=== PATIENT | female | born 1980 | race Two or more races ===

== ENCOUNTER 2017-01-28 18:03 | Emergency (ER) | payer OTHER ==
[~2017-01-28] VITALS: Ht 165.1 cm; Wt 54.4 kg
[~2017-01-28 18:03] MED LIST: LORA2TAB89 PO
[2017-01-28 18:13] VITALS: BP 125/84
== END 2017-01-28 19:53 | disposition home or self-care (01) ==
LOC: ER 18:03
DX: S00.93XA Contusion of unspecified part of head, initial encounter (principal); L03.012 Cellulitis of left finger; R42 Dizziness and giddiness; R53.1 Weakness; M54.9 Dorsalgia, unspecified; G89.29 Other chronic pain; W18.39XA Other fall on same level, initial encounter; Y93.89 Activity, other specified; Y92.89 Other specified places as the place of occurrence of the external cause; Y99.8 Other external cause status

== ENCOUNTER 2020-04-30 04:56 | Emergency (ER) | payer OTHER ==
[~2020-04-30] VITALS: Ht 160 cm; Wt 56.4 kg
[2020-04-30] MEDS ORDERED: SODIUM CHLORIDE 0.9% 2,000 ML IV ONE (05:45)
[2020-04-30] MEDS ORDERED: THIAMINE 100mg/ml INJ (200mg/2ml VIAL) IV ONE (06:00)
[2020-04-30] MEDS ORDERED: FOLIC ACID 1 MG, MAGNESIUM SULF SDV 50% 8 MEQ, THIAMINE INJ 100 MG in SODIUM CHLORIDE 0... INJ SCH (06:30)
[2020-04-30] MEDS ORDERED: FOLIC ACID 1 MG, MULTIPLE VITAMIN 10 ML, MAGNESIUM SULF SDV 50% 8 MEQ, THIAMINE INJ 100... INJ SCH ×5 (12:00)
[2020-04-30 13:30] VITALS: BP 113/67
== END 2020-04-30 13:53 | disposition home or self-care (01) ==
LOC: ER 04:56 → EEVIPCON 04:56 → ER 13:53
DX: F10.129 Alcohol abuse with intoxication, unspecified (principal); F17.210 Nicotine dependence, cigarettes, uncomplicated; F41.9 Anxiety disorder, unspecified; Y90.8 Blood alcohol level of 240 mg/100 ml or more
CPT/HCPCS: 36415; 80320; 96361; 96365; 96366; 99285; J7030